=== PATIENT | female | born 1960 | race Caucasian/White ===

== ENCOUNTER 2019-04-16 14:14 | Emergency (ER) | payer BC, SELFPAY ==
[2019-04-16 14:18] VITALS: BP 110/80; PULSE 79; RESP 20; TEMP 36.8
--- NOTE | 2019-04-16 14:23 | DI.RAD_ITS ---
SYMPTOM/DIAGNOSIS: S/P STUBBED 5TH TOE , H/O PINS IN FOOT, ? ACUTE FX OR HARDWARE LOOSENING LEFT FOOT: Three views were obtained. There are fixation screws in the fifth metatarsal midshaft. There is a lucent halo associated with the proximal screw consistent with loosening. Very subtle linear lucencies present in the fifth metatarsal may be associated with the reported healing fracture of about 6 months age. No convincing acute fracture is seen but acute fracture not entirely excluded. IMPRESSION: Findings consistent with screw loosening of a fixation screw of the fifth metatarsal.
--- NOTE | 2019-04-16 14:25 | ED.GENADUL_ITS ---
Discharge Plan Disposition Patient Disposition: HOME Condition: Stable Discharge Details Chief Complaint: Orthopedic Clinical Impression: Sprain of toe, fifth, left Primary Care Provider: None,None ED Provider: Elisa Garcia Home Meds and New Rx's Prescriptions: Continued sumatriptan succinate [Imitrex] 25 MG tablet 25 mg PO PRN RF: 0 diphenhydramine HCl 25 MG capsule 25 mg PO PRN RF: 0 omeprazole [Prilosec] 20 MG capsule,delayed release(DR/EC) 20 mg PO DAILY RF: 0 escitalopram oxalate [Lexapro] 10 MG tablet 10 mg PO HS RF: 0 Discharge Instructions Instructions: Foot Sprain (ED) Additional Instructions: Rest, ice, and elevate left foot as much as possible. Apply ice to the affected area several times daily for 20 minutes at a time. Alternate Tylenol and Motrin as needed directed for pain. Follow-up with your primary care doctor next week for reevaluation as needed. Return to the emergency department with any worsening or new concerning symptoms. Discharge Data Discharge Physician: Elisa Garcia Medical Decision Making 58-year-old female 1 year status post left fifth metatarsal open reduction internal fixation who presents with left fifth toe pain after stubbed on a hard object at home yesterday. Tenderness to palpation of left fifth toe and left lateral foot. No deformities noted. Neurovascular intact. We will give a dose of ibuprofen and sent for left foot x-ray. 1545 --x-ray negative, hardware well aligned and no acute fracture. Patient instructed on the importance of rest, ice, elevate, Tylenol and Motrin. She is instructed to follow-up with the primary care doctor for reevaluation as needed and to return here with any concerns. Medical Records Medical records reviewed: Yes I reviewed the patient's medical records. Imaging Data Radiologic Study: Radiologist's impression: XR Left Foot Complete EXAM DATE/TIME: 04/16/2019 2:25 PM CLINICAL HISTORY: 58 years old, female; Signs and symptoms; Other: S/P stubbed L 5th toe, h/o pins in foot; Prior surgery; Surgery date: 6+ months; Additional info: R/O acute fracture/ hardware loosening TECHNIQUE: Imaging protocol: XR Left foot. Views: 3 or more views. COMPARISON: No relevant prior studies available. FINDINGS: Prior screw fixation of a fifth metatarsal fracture in anatomic alignment well-healed. No acute fracture. Minimal degenerative changes consistent with patient's age. No bony destructive process. No evidence of fixation screw loosening. IMPRESSION: No evidence of acute bony abnormality. HPI General Mode of arrival: ambulatory . Date/Time Provider Initiated Documentation: 04/16/19 14:23 . Limitations to Documentation: no limitations . Information obtained by: patient . HPI Narrative: Patient is a 58 old female who presents with left toe pain and left lateral foot pain after stubbed her toe on a hard object yesterday. Patient states she is concerned because she had foot hardware placed in her left foot due to a fracture 1 year ago. She denies any ankle pain or injury. She has not taken anything for pain today. Related Data Home Medications Medication Instructions Recorded Confirmed diphenhydramine HCl 25 mg PO PRN 07/16/14 04/16/19 escitalopram oxalate [Lexapro] 10 mg PO HS 07/16/14 04/16/19 omeprazole [Prilosec] 20 mg PO DAILY 07/16/14 04/16/19 sumatriptan succinate [Imitrex] 25 mg PO PRN 07/16/14 04/16/19 Allergies Allergy/AdvReac Type Severity Reaction Status Date / Time aspirin Allergy Intermediate Nausea Unverified 04/16/19 14:20 General Stated Complaint: Orthopedic ROGELIO: 3 Review of Systems Review of Systems All systems reviewed & are unremarkable except as noted in HPI and below PFSH Medical History Anxiety (Chronic) GERD (gastroesophageal reflux disease) (Chronic) Migraine (Chronic) Surgical History History of knee surgery (Acute) Social History Smoking/Tobacco Use Status: Never Alcohol Intake: current Alcohol Intake frequency: 0-2 drinks per day Drug use: Never Substance use type: does not use Do you feel safe at home: Yes Do you feel safe in your relationship?: Yes Exam Const General: cooperative, healthy appearing and no acute distress HENMT Head: normal to inspection Mouth: oral mucosae normal Eyes General: appearance normal, both eyes and all related structures Neck Neck: normal visual inspection Resp Effort & Inspection: normal respiratory effort and able to speak in complete sentences Cardio Rate: regular rate Skin General skin exam: no rashes or lesions noted Neuro General: alert, awake and oriented x3 Motor: muscle tone normal throughout Extrem Other: Tenderness to palpation, mild edema and ecchymosis noted to left fifth toe. No obvious deformity noted. Tenderness to palpation along left lateral foot. Well-healed incisional scar noted on left lateral foot. No signs of infection. Normal left ankle exam. Left DP/PT pulses intact. Remainder of toes 1 through 4 with a normal limits. Psych Appearance: grossly normal Affect: normal affect Course Vital Signs Temperature 98.2 F 04/16/19 14:18 Pulse 79 04/16/19 14:18 Respiratory Rate 20 04/16/19 14:18 Blood Pressure 110/80 04/16/19 14:18 Temperature 98.2 F 04/16/19 14:18 Temperature Source Temporal Artery Scan 04/16/19 14:18 Pulse 79 04/16/19 14:18 Respiratory Rate 20 04/16/19 14:18 Respiratory Effort Non-Labored 04/16/19 14:18 Blood Pressure 110/80 04/16/19 14:18 Pain Level 5 04/16/19 14:18
--- NOTE | 2019-04-16 15:45 | DI.VRAD_ITS ---
EXAM: XR Left Foot Complete EXAM DATE/TIME: 04/16/2019 2:25 PM CLINICAL HISTORY: 58 years old, female; Signs and symptoms; Other: S/P stubbed L 5th toe, h/o pins in foot; Prior surgery; Surgery date: 6+ months; Additional info: R/O acute fracture/ hardware loosening TECHNIQUE: Imaging protocol: XR Left foot. Views: 3 or more views. COMPARISON: No relevant prior studies available. FINDINGS: Prior screw fixation of a fifth metatarsal fracture in anatomic alignment well-healed. No acute fracture. Minimal degenerative changes consistent with patient's age. No bony destructive process. No evidence of fixation screw loosening. IMPRESSION: No evidence of acute bony abnormality. Dictated and Authenticated by: Angel Nowak MD. Ordering:JIGNA Pérez MD
[2019-04-16] MEDS: Ibuprofen 600 MG TAB PO (15:55)
--- NOTE | 2019-04-17 20:16 | W.ED.FU ---
In house radiologist Dr. Alex noted a discrepancy with foot xray read as negative per vrad on 04/16/19 with new report of findings consistent with screw loosening of a fixation screw of the fifth metatarsal. Spoke with patient over the phone regarding this discrepancy x-ray finding. Patient placed on orthopedic list for review of this x-ray in the morning to confirm whether this is an actual loosening. She was instructed to call her orthopedist in [place] where she had the hardware placed 1 year ago. At this time she is still encouraged to rest, ice, elevate and nonweightbearing until follow-up with her orthopedist for further recommendations.
--- NOTE | 2019-04-17 20:20 | ED.FU.B_ITS ---
In house radiologist Dr. Alex noted a discrepancy with foot xray read as negative per vrad on 04/16/19 with new report of findings consistent with screw loosening of a fixation screw of the fifth metatarsal. Spoke with patient over the phone regarding this discrepancy x-ray finding. Patient placed on orthopedic list for review of this x-ray in the morning to confirm whether this is an actual loosening. She was instructed to call her orthopedist in [place] where she had the hardware placed 1 year ago. At this time she is still encouraged to rest, ice, elevate and nonweightbearing until f ollow-up with her orthopedist for further recommendations.
== END 2019-04-16 16:00 | disposition home or self-care (01) ==
PROVIDERS: Emergency Provider Physician Assistant
DX: S93.522A Sprain of metatarsophalangeal joint of left great toe, initial encounter (principal); W22.8XXA Striking against or struck by other objects, initial encounter
CPT/HCPCS: 99283; 73630

== ENCOUNTER 2019-07-29 08:25 | Outpatient (CLI) | payer BC, SELFPAY ==
--- NOTE | 2019-07-29 08:18 | DI.RAD_ITS ---
SYMPTOM/DIAGNOSIS: LEFT KNEE PAIN LEFT KNEE: There is severe narrowing of the medial femoral tibial joint and prominent spurring. Periarticular sclerosis is also seen. There is some varus angulation at the knee. There is also spurring from the lateral femoral condyle, lateral tibial plateau and tibial spines. There is spurring at the inferior aspect of the patellofemoral joint. IMPRESSION: Degenerative changes, most severe at the medial femoral tibial joint.
== END 2019-07-29 08:45 ==
PROVIDERS: Visit Provider Physician Assistant
DX: M25.562 Pain in left knee (principal); M17.12 Unilateral primary osteoarthritis, left knee
CPT/HCPCS: 73562

== ENCOUNTER 2019-09-02 10:58 | Outpatient (CLI) | payer BC, SELFPAY ==
--- NOTE | 2019-09-02 10:46 | DI.RAD_ITS ---
EXAM: XR STANDING ALIGNMENT INDICATION: OA left knee. COMPARISON: No exams were available for comparison TECHNIQUE: 2D digital imaging was performed. FINDINGS: Hip joint spaces are well maintained. The left femoral head projects superior to the right. There are degenerative changes of both knees, left greater than right. The ankle joint spaces are well jeet ntained. IMPRESSION: Degenerative changes greatest of the left knee. Leg length discrepancy.
== END 2019-09-02 11:18 ==
PROVIDERS: Visit Provider Physician Assistant
DX: M17.12 Unilateral primary osteoarthritis, left knee (principal); M21.70 Unequal limb length (acquired), unspecified site
CPT/HCPCS: 77073

== ENCOUNTER 2019-11-03 09:52 | Outpatient (CLI) | payer BC, SELFPAY ==
[2019-11-03 11:24] LABS: HCT 46.3 % (36.0-46.0); HGB 14.6 g/dL (12.0-15.5); Mean Corp. HGB Concentration 31.5 g/dL (32.0-36.0); Mean Corpuscular Volume 95.1 fL (80-95); Mean Platelet Volume 11.3 fL (8.0-11.0); Platelet Count 267 x1000/uL (130-400); RBC 4.87 m/cumm (4.00-5.20); RBC Distribution Width 12.4 % (11.7-14.6); White Blood Cell Count 6.99 k/cumm (4.4-10.8)
[2019-11-03 12:09] LABS: Anion Gap 5.3 mmol/L (3-11); BUN 17 mg/dL (7-18); CO2 30.7 mmol/L (21.0-32.0); CREATININE 0.86 mg/dL (0.55-1.02); Calcium 9.7 mg/dL (8.5-10.1); Chloride 105 mmol/L (98-107); Glucose 105 mg/dL (74-106); Potassium 4.6 mmol/L (3.5-5.1); Sodium 141 mmol/L (136-145)
--- NOTE | 2019-11-03 16:00 | W.PREOPHP ---
Date of service: 11/03/19 Assessment and Plan Assessment and plan (1) Primary osteoarthritis of left knee: Status: Chronic Assessment and plan: Pulmonary function. Details of surgery were discussed with patient as well as risks and pertinent anatomy. All questions were answered. History of Present Illness History of Present Illness Chief Complaint: Left knee pain Narrative: Landy is a 59-year-old female who comes in today for preop history and physical for a left total replacement. She has been dealing with left knee pain for quite some time, and to get aggravated from an event in which she had surgery for her foot and was forced to wear a fracture walking boot. Since then her knee pain had significantly increased. It bothers her when she is ambulating for long time, and also she sits with her knees bent for any length of time she gets an increase in her pain. She has difficulty ambulating stairs as well. This is starting to interfere with normal daily routine. She has had an injection, but will work for 1-2 days, and then the pain returned. She has had x-rays which does reveal some pretty severe arthritis of the left knee, mostly in the medial compartment where she has joint space narrowing. She also has bone spurs throughout the knee. Since she has failed conservative treatment including injections, Dr. Heredia does offer a left total knee replacement, and she is anxious to proceed. Pertinent Surgical Information Landy has a history of sleep apnea for which he does use a CPAP machine. Patient denies history of hypertension, CVA, [place], angina, asthma, COPD, renal or liver disorders, hepatitis, bleeding disorders, diabetes, immune or thyroid disorders. No complications from anesthesia. Review of Systems Constitutional Constitutional: Denies fever(s) ENT Ears, Nose, Mouth, and Throat: Denies dizziness and Denies sore throat Cardiovascular Cardiovascular: Denies chest pain, Denies palpitations and Denies dyspnea Respiratory Respiratory: Denies cough and Denies dyspnea Gastrointestinal Gastrointestinal: Denies abdominal pain, Denies melena, Denies hematochezia, Denies diarrhea, Denies nausea and Denies vomiting Genitourinary Genitourinary: Denies hematuria and Denies dysuria Neurologic Neurologic: Denies dizziness Endocrine Endocrine: Denies palpitations [facility] Medical History (Updated 11/03/19 @ 16:03 by RAVINDRA Mancia) Anxiety (Chronic) GERD (gastroesophageal reflux disease) (Chronic) Migraine (Chronic) Restless leg syndrome (Acute) Sleep apnea (Acute) uses CPAP Surgical History (Updated 11/03/19 @ 11:13 by Bertha Tello RN) Combative reaction (Acute) History of waking up from anesthesia with the potential to be combative, pt states I've woken up swinging before. History of foot surgery (Acute) left surgery with pins History of knee surgery (Acute) Done at [facility] History of surgery on arm (Acute) Left arm surgery History of tonsillectomy and adenoidectomy (Acute) Hx of appendectomy (Chronic) Hx of cholecystectomy (Chronic) Social History Smoking/Tobacco Use Status: Former Tobacco Use Alcohol Intake: current Alcohol Intake frequency: 0-2 drinks per day Drug use: Never Substance use type: does not use Do you feel safe at home: Yes Do you feel safe in your relationship?: Yes Meds Home Medications and Allergies Home Medications Medication Instructions Recorded Confirmed Type escitalopram oxalate [Lexapro] 10 mg PO HS 07/16/14 11/03/19 History omeprazole [Prilosec] 20 mg PO HS 07/16/14 11/03/19 History ascorbate calcium (vitamin C) 500 600 mg PO .COMPLEX tab 07/29/19 11/03/19 History mg tablet cholecalciferol (vitamin D3) 1,000 1,000 unit PO .COMPLEX 07/29/19 11/03/19 History unit capsule glucosamine-chondroitin 500 mg-400 2 cap PO HS cap 07/29/19 11/03/19 History mg capsule potassium 99 mg tablet 99 mg PO DAILY tab 07/29/19 11/03/19 History ropinirole 0.25 mg tablet 0.25 mg PO QHS 07/29/19 11/03/19 History Allergies Allergy/AdvReac Type Severity Reaction Status Date / Time aspirin Allergy Intermediate Nausea Unverified 11/03/19 10:08 Exam [facility] Head: normocephalic and atraumatic General nose exam: no nasal discharge Throat: uvula midline and no uvular edema Other: soft palate rises symmetrically, no erythema Eyes Conjunctivae: conjunctivae normal Sclera: sclerae normal Pupils: PERRL Resp Effort & Inspection: normal respiratory effort Auscultation: clear to auscultation bilaterally and no wheezes Cardio Rate: regular rate Rhythm: regular rhythm Heart Sounds: S1 normal, S2 normal and no murmurs GI Palpation: soft, no hepatosplenomegaly and nontender Auscultation: normal bowel sounds Results Labs Result diagrams: 11/03/19 11:11 11/03/19 11:11 Labs: Laboratory Results - last 24 hr 11/03/19 11/03/19 11:11 11:11 WBC 6.99 RBC 4.87 Hgb 14.6 Hct 46.3 H MCV 95.1 H MCH 30.0 MCHC 31.5 L RDW 12.4 Plt Count 267 MPV 11.3 H Sodium 141 Potassium 4.6 Chloride 105 Carbon Dioxide 30.7 Anion Gap 5.3 BUN 17 Creatinine 0.86 Estimated GFR/1.73 m2 >= 60.00 Glucose 105 Calcium 9.7
== END 2019-11-03 10:12 ==
PROVIDERS: PCP Physician Assistant Medical; Visit Provider Student in an Organized Health Care Education/Training Program
DX: M25.562 Pain in left knee (principal); M17.12 Unilateral primary osteoarthritis, left knee; K21.9 Gastro-esophageal reflux disease without esophagitis; E66.9 Obesity, unspecified; Z01.818 Encounter for other preprocedural examination; Z01.812 Encounter for preprocedural laboratory examination
CPT/HCPCS: 36415; 80048; 85027; NC

== ENCOUNTER 2019-11-15 07:25 | Inpatient (IN) | payer BC, SELFPAY ==
[2019-11-03 09:52] VITALS: BP 129/85; PULSE 83; RESP 18; TEMP 36.9; O2SAT 96
[2019-11-15] VITALS (14 sets, daily range): BP systolic 106–141; BP diastolic 70–91; PULSE 55–71; RESP 10–19; TEMP 36.2–36.9; O2SAT 92–100
[2019-11-15] MEDS: Acetaminophen 500 MG TAB 1000 MG PO ×3 (06:30→19:39)
[2019-11-15] MEDS: Celecoxib 200 MG CAP 400 MG PO (06:30)
[2019-11-15] MEDS: Lactated Ringers 1,000 ML 80 ML IV ×3 (06:30→21:39)
[2019-11-15] MEDS: Gabapentin 300 MG CAP PO (06:30)
[2019-11-15] MEDS: Bupivacaine 0.5% Pres-Free 30 ML VIAL (07:22)
[2019-11-15] MEDS: ceFAZolin 2 GM/50 ML BAG IVPB (07:55)
[2019-11-15] MEDS: Normal Saline 20 ML VIAL (09:00)
[2019-11-15] MEDS: Bupivacaine 0.25% Pres-Free 30 ML VIAL (09:00)
[2019-11-15] MEDS: Bupivacaine LIPOSOME/PF 133 MG/10 ML VIAL IJ (09:00)
[2019-11-15] MEDS: Ketorolac 30 MG/ML VIAL (09:00)
--- NOTE | 2019-11-15 10:21 | W.PM.OP ---
Date of service: 11/15/19 Time of Service: 09:41 Operative Note Operative Note DATE OF PROCEDURE: 11/15/19 PRE-OP DIAGNOSIS: Left Knee Osteoarthritis POST-OP DIAGNOSIS: same PROCEDURE: Left Total Knee Replacement SURGEON: Sorin Heredia HEAD SCHOOL CUSTODIAN: Jose Agrawal ANESTHESIA: regional and spinal ESTIMATED BLOOD LOSS: 200 PATHOLOGY: none sent TOURNIQUET TIME: 35 COMPLICATIONS: None Patient was transported to: PACU Patient's condition: stable Implants: 1. Depuy Attune Posterior Stabilized Femoral Component, Size 6 2. Depuy Attune Fixed Platform Tibial Component, Size 5 3. Depuy Attune 6x8mm Fixed, Stabilized Poly 4. Depuy Attune Patellar Component, Size 35mm Indications: I have seen Landy in clinic for symptoms of left knee arthritis, confirmed with radiographic findings. Landy has exhausted nonoperative methods and was having significant limitations in daily function and desired better function and less pain. I discussed the technical details of a knee replacement. I explained the risks of the procedure to include, but not limited to, bleeding, infection, pain, stiffness, fracture, damage to nerves and vessels, damage to muscles and tendons, loosening, need for repeat procedure, blood clot and cardiopulmonary demise. Despite these risks, Landy elected to proceed. Findings: There was significant signs of arthritis throughout the knee. These were most notable along the medial tibia and femur. Procedure Description: Landy was greeted in the preoperative holding area where the correct side was identified and marked. The consent was reviewed with the patient and signed. The history and physical was updated. All questions were answered. Preoperative mediacations were administered: Acetaminophen 1000mg, Celebrex 400mg, and Gabapentin 300mg. An adductor canal block was then administered by the anesthesia team in the PACU. Landy was taken back to the operating room. A spinal anesthestic was then administered. The patient was placed into the supine position on the operating room table. A nonsterile tourniquet was placed high onto the leg but only used for cementing. Posts were placed for positioning during the procedure. All bony prominences were well padded. Prophylactic antibiotics in the form of Cefazolin were administered. 1g of Tranxemic Acid was given intravenously within 30 minutes of incision. The left leg was then prepped with Chloraprep and draped in a standard fashion with impervious stockinette and extremity drape. A second prep with Chloraprep was performed prior to placing Ioband. A timeout to confirm correct identity, side and site, procedure, allergies, anesthesia, and medical concerns was performed. With the knee in some flexion, a midline incision was made overlying the knee. Full thickness skin flaps were raised once the extensor mechanism was encountered. These were raised medially and laterally. Any bleeding was controlled with electrocautery. Once the extensor mechanism was fully exposed, a medial parapatellar arthrotomy was performed in a flexed position. All bleeding from the arthrotomy and the geniculate arteries was coagulated. A medial subperiosteal peel was performed with electrocautery to the midcoronal plane. The deep MCL and capsular attachments were released around the medial tibia. The fat pad was removed while keeping the patellar tendon protected. The anterior distal femur synovium was removed for later visualization. The ACL and PCL were resected and the anterior horn of the lateral meniscus was transected. The knee was then flexed with the patella everted. Large osteophytes from the tibia were removed. Large osteophytes from the femur were removed. Using a step drill, and based on preoperative templating, the femoral canal was entered. This was done with a step drill without any difficulty. The intramedullary distal femoral cut guide was inserted, set to a 5 degree valgus cut and 9mm cut thickness. The distal femoral cut guide was then held in position and pinned. With the soft tissues protected, the distal cut was performed. This was passed over a few times to ensure a planar cut. I then turned attention to the tibia. The extramedullary guide was placed onto the leg. The distal aspect was slid medial to adjust for position of center of ankle and stay in line with shaft of the tibia. Approximately 3-5 degrees of posterior slope was kept in the proximal cutting guide. The center of the guide was aligned with the PCL. The stylus was used to assess cut thickness. The medial side, most involved side, was set for a 3mm cut, corresponding to a 9mm lateral cut. This was then held in position and pinned into place with 2 additional pins and a cross pin for stability. The medial and lateral collateral ligaments were protected and the cut was performed. With this completed, it was assessed and noted to be of appropriate dimensions. The guide was removed. A spacer block was inserted and the knee was brought into extension. The 7mm spacer block provided full extension, without hyperextension and with stability of both the medial and lateral collateral ligaments was assessed. The pins from the femur and the tibia were then removed. The distal femur was then sized. The anterior stylus was placed onto the lateral ridge of the anterior femur. This indicated a size 6 femur. The external rotation of the guide was adjusted to 3 degrees to match the epicondylar axis, perpendicular to Winona?s line. The 4-in-1 cutting guide was the placed. The posterior medial femur cut was evaluated and appeared of good thickness. The spacer block was inserted underneath the cutting guide and stability was confirmed in 90 degrees of flexion. An collins wing was used to confirm appropriate position of the anterior cut to avoid notching. This cutting guide was ensured to be flush on the cut surface and then pinned into place with headed pins. While protecting the soft tissues, quad tendon, and collateral ligaments, the anterior and posterior cuts were performed with a saw. The central two pins were removed and the posterior and anterior chamfers were cut next. The notch-cutting guide was placed. This was pinned to lateralize the femoral component as much as possible while keeping it flush on the cut surface. This was then pinned into position. A reciprocating saw was used to make the notch cut. A rasp smoothed the cut surfaces. A trial posterior stabilized femoral component was then inserted, impacted down to the cut surfaces, and the lug holes were drilled. A provisional trial tibial component was placed and the knee was brought through range of motion. There was noted to be excellent extension and flexion. The polyethylene was trialed until there was good flexion and extension with excellent stability to the medial and lateral collaterals. The patella was tracking without thumbs. The tibial cut surface was fully exposed. The medial and lateral menisci were removed. The tibia was then sized as a 5. The tibia had been previously marked during trialing to correspond to the center of the tibial component to help with rotation. The trial was aligned to this jose, approximately rotated to the medial 1/3rd of the tibial tubercle. The trial was pinned into place. The tibia was prepared with a reamer and a keel punch. The knee was then brought into extension and the patella was measured as 23mm. Using the patellar clamp and cut guide, this was resected to a flat surface with at least 13mm of thickness remaining. The size 35 patella fit the best. This was oriented and then clamped into position. The lugs were drilled. The trial components were removed. The final components, except for the polyethylene were opened on the back table. The periosteal and capsular tissues, especially posteriorly, around the knee were then systematically injected with a periarticular cocktail consisting of 50cc 0.25% Marcaine, 30mg Ketorolac, 20cc of Exparal and 50cc of injectable saline. The tourniquet was then inflated to 275mmHg. The knee was thoroughly irrigated with a pulse lavage and dried. On the back table, with the implants opened, the cement was mixed. 2 batches of cement were prepared with vacuum assistance. After the cement was ready it was placed on to the back side of the tibial component. A small amount was placed onto the posterior flange of the femur. Cement was manual pressurized and impregnated into the cut surface of the tibia. The tibial component was then inserted into the cut surface and impacted into position. Excess cement was removed and the component was reimpacted. Again, excess cement was removed and our attention was then turned to the femur. The femoral cut surface was once again dried and cement was manually impacted into the cut surface. The femoral component was lined with the lug holes and impacted. Excess cement was removed. It was ensured to be down against the cut surface. The trial polyethylene was then inserted and the leg was brought out into full extension for the duration of the cement curing process, approximately 15min. Cement was lastly manually impacted into the cut surface of the patella and the patellar button was clamped into position and held. During this process attention was turned to the gutters of the knee and for all interfaces for any excess cement. While the cement was hardening, the knee was irrigated with Irrisept chlorhexadine solution. It was allowed to sit in the knee for 3 minutes. After the cement had finally cured, approximately 15min, the clamp was removed from the patella and the knee was taken through range of motion. A size 8mm polyethylene component provided the best range of motion and stability with less than 2mm gapping with medial and lateral stress and full extension without significant hyperextension. The patella was tracking with a no-thumbs technique. The trial poly was removed and once again the knee was checked for any loose, excess, or errant cement. The poly component was then inserted and impacted into position after cleaning and drying the tibial tray. The capsule was then reapproximated with a No. 1 Vicryl at multiple locations. The capsule was finally closed with a No. 2 Stratafix, barbed suture. The tourniquet was then released and the arthrotomy appeared watertight without significant bleeding. The second dosing of 1g TXA was started. Deep tissues were then reapproximated with 0 Vicryl and 2-0 Vicryl. The skin was closed with a running 3-0 Monocryl in a subcuticular fashion. This was reinforced with skin glue. A Mepilex silver dressing was applied along with a [id number] JORGE wrap. A CryoCuff was applied. Landy was transferred to the hospital bed without difficulty an suffering no apparent complication. Landy has a good prognosis. Physical therapy will start today and without restrictions, weight-bearing as tolerated. Aspirin 81mg BID will be used for DVT prophylaxis.
--- NOTE | 2019-11-15 12:41 | NUR.NOTE ---
Nursing Note: Pt arrived from PACU, VSS. A&Ox3. denies pain, nausea. CMST's WNL. palpable pedal pulse bilateral. Rivera patent. oriented to room, resting comfortably.
--- NOTE | 2019-11-15 13:05 | IN_ITS ---
Date of service: 11/15/19 Time of Service: 11:54 PT Notes Visit Reasons: LEFT KNEE DJD Physical Therapy Inpatient Initial Evaluation Date: 11/15/2019 Referring Doctor: Sorin Heredia MD PT Orders: PT CONSULT: Status post Ortho surgery. Status post left TKA Precautions: Fall. Standard. WBAT on left LE. Patient Profile/Admitting Diagnosis: Patient is a 59-year-old female who is status post total knee arthroplasty on the left side on postoperative day 0 due to due to degenerative joint disease of the left knee. PMHX: Medical History (Updated 11/03/19 @ 16:03 by RAVINDRA Mancia) Anxiety (Chronic) GERD (gastroesophageal reflux disease) (Chronic) Migraine (Chronic) Restless leg syndrome (Acute) Sleep apnea (Acute) uses CPAP Surgical History (Updated 11/03/19 @ 11:13 by Bertha Tello RN) Combative reaction (Acute) History of waking up from anesthesia with the potential to be combative, pt states I've woken up swinging before. History of foot surgery (Acute) left surgery with pins History of knee surgery (Acute) Done at [facility] History of surgery on arm (Acute) Left arm surgery History of tonsillectomy and adenoidectomy (Acute) Hx of appendectomy (Chronic) Hx of cholecystectomy (Chronic) Social History/Home Situation: Patient lives with in a 2 floor house with 3-4 steps to enter with rails on both sides. There is another 10 steps to the second floor of the house again with rails on both sides. 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 Patient is independent with all aspects of ADLs prior to surgery but required the use of a front wheeled walker for all outdoor ambulation as it was getting harder to navigate outdoor terrain with her increasingly painful left knee. Equipment Owned/DME: Front wheeled walker Subjective: Patient is agreeable to a PT consult. She is amazed at how much she is able to do and less than today after major surgery. She is very much pleased with her ability to move about without pain. She denies headache, chest pain, and dizziness throughout PT consult and mobility assessment. Objective: General Observation: TEDS on right leg. Cryo/Cuff on left knee. Cristian wraps of left knee. Rivera catheter in place. IV in left UE. Mental Status: Alert and oriented x4 Pain: 0/10 Vital Signs: Patient tested negative for orthostatic hypotension at time of evaluation. ROM: Right Upper Extremity: Shoulder Flexion WFL. Shoulder abduction WFL. Elbow flexion WFL. Wrist flexion WFL. Opening and closing of hand WFL. Left Upper Extremity: Shoulder Flexion WFL. Shoulder abduction WFL. Elbow flexion WFL. Wrist flexion WFL. Opening and closing of hand WFL. Right Lower Extremity: Hip flexion WFL. Hip abduction WFL. Knee flexion allows - 12 to 105 degrees. Knee extension is -12 degrees. Ankle dorsiflexion WFL. Ankle plantarflexion WFL. Left Lower Extremity: Hip flexion WFL. Hip abduction WFL. Knee flexion WFL. Ankle dorsiflexion WFL. Ankle plantarflexion WFL. Strength: Right Upper Extremity: Shoulder flexors 5/5. Shoulder abductors 5/5. Elbow flexors 5/5. Elbow extensors 5/5. 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 Left Upper Extremity: Shoulder flexors 5/5. Shoulder abductors 5/5. Elbow flexors 5/5. Elbow extensors 5/5. 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 Right Lower Extremity: Hip flexors 5/5. Hip abductors 5/5. Knee flexors 3-/5. Knee extensors 3-/5. Ankle dorsiflexors 5/5. Ankle plantarflexors 5/5. Left Lower Extremity:Hip flexors 5/5. Hip abductors 5/5. Knee flexors 5/5. Knee extensors 5/5. Ankle dorsiflexors 5/5. Ankle plantarflexors 5/5. Sensation: Intact as to pain and pressure on bilateral lower extremities. Bed Mobility/Transfers: Rolling supervision Supine to sit supervision Sit to supine supervision Sit to stand SBA Stand to sit SBA Bed to chair SBA SBA Chair to bed Gait: Patient tolerated short distance ambulation of 10 feet forward and 10 feet backward using front wheeled walker with weightbearing as tolerated on the left LE requiring only CGA and wheelchair follow without complaints of any dizziness using a step through gait pattern. Anne Marie decreased. No antalgic gait seen. Left LE in good alignment. Balance: Static Sitting: Normal Dynamic Sitting: Normal Static Standing: Fair Dynamic Standing: Fair Special Tests: Mobility Limitations Standardized Measure [facility] AM-PAC 6 clicks Basic Mobility Inpatient Short Form: Raw Score: 22 CMS Score: 21% deficit Informed Consent/Education: Patient instructed in purpose of PT consult and plan of care. Assessment: Patient is a 59-year-old female who is status post total knee arthroplasty on the left side on postoperative day 0 due to due to degenerative joint disease of the left knee. Patient presents with clinical signs and symptoms consistent with current/admitting diagnoses that have resulted to mobility limitations, gait instability, generalized weakness, and impairment of motor control as demonstrated by the following impairment level findings: 1. Decreased strength to right knee major muscle groups 2. Impaired sitting/standing balance 3. Impaired activity tolerance 4. Limitation of joint range of motion in right knee Impairments are contributing to the following functional limitations: 1. Dependent bed mobility skills 2. Increased dependence with transfers 3. Inability to safely ambulate without assistive device and physical assistance 4. Increase completion time for mobility ADL performance 5. Increased fall risk 6. Inability to negotiate steps alone safely Patient is assessed as a 84657 moderate complexity based on the following: History: 59-year-old female with impairment level findings, functional limitations, and [facility] CMS deficit score of 21% Examination: Demonstrable impairment in strength, balance, and range of motion with underlying impairments and functional limitations as documented above Presentation: Evolving Decision Makin moderate complexity Goals: Goals X1 week 1. Supine-Sit independent 2. Sit-Supine independent 3. Sit-Stand independent 4. Stand-Sit independent 5. Bed-Chair independent 6. Chair-Bed independent 7. Independent gait on level surface with use of least restrictive device for at least 300 feet without report of pain nor dyspnea 8. Independent stair negotiation while holding onto bilateral rails for at least 10 steps without report of pain nor dyspnea 9. Independent with home exercise program 10. Good static and dynamic standing balance/tolerance Plan of Care/Treatment Plan: 1-2x/day, 7 days/week x 1 week. Plan of care has been reviewed with the STUDIO COUCH FRAME BUILDER providing the service under Physical Therapy direction. Initiate Physical Therapy intervention for strengthening, bed mobility, transfers, gait, stairs, balance training, use of assistive device. DISCHARGE RECOMMENDATIONS: May benefit from skilled physical therapy services according to orthopedic surgeon's timeline recommendations. Patient will be educated and trained on home exercise program per TKA exercise protocol in preparation for outpatient physical therapy services. TREATMENT CODE/TIME: 48234 x 35 minutes beginning at 11:54 AM. Thank you very much for this referral. Paty Kellogg PT, DPT, CLT [facility] [place], [place]
--- NOTE | 2019-11-15 14:52 | PT.INTREAT ---
Date of service: 11/15/19 Time of Service: 14:52 PT Notes Visit Reasons: LEFT KNEE DJD Inpatient Physical Therapy Treatment Note [facility] Date: 11/15/19 PRECAUTIONS: Fall, WBAT L SUBJECTIVE: Landy is agreeable to participating in PT. She reports that her knee is feeling pretty good, and it feels good to get up and walk around. OBJECTIVE: PAIN: Patient c/o aching in left knee with gait training BED MOBILITY/TRANSFERS Sit?supine: I with HOB flat Sit-stand: S Stand-sit: S GAIT Assistive Device: FWW Weight bearing: WBAT L Assist: SBA Distance: 100' Deviation: Step to gait pattern utilized THEREX: Patient completed a LE strengthening program in a long sitting position, as per flow sheet. She ends with Cryo/Cuff to L knee ASSESSMENT: Patient tolerated session well, tolerating a progression in gait distance with FWW support and SBA. She would benefit from continued gait and transfer training, as well as strengthening for improved mobility. PLAN: Continue with PT's POC TREATMENT CODE/TIME: 30 minutes; 77822, [id number]
[2019-11-15] MEDS: ceFAZolin 1 GM/50 ML BAG IVPB ×2 (15:07→21:39)
[2019-11-15] MEDS: oxyCODONE 5 MG TAB PO (15:07)
[2019-11-15] MEDS: Celecoxib 200 MG CAP PO (19:39)
[2019-11-15] MEDS: Aspirin E.C. 81 MG TABEC PO (19:39)
[2019-11-15] MEDS: rOPINIRole 0.5 MG TAB 0.25 MG PO (21:36)
[2019-11-15] MEDS: Escitalopram 10 MG TAB PO (21:36)
[2019-11-15] MEDS: Omeprazole 20 MG CAPCR PO (21:44)
[2019-11-16 00:34] VITALS: BP 127/78; PULSE 76; RESP 21; TEMP 36.5; O2SAT 96
[2019-11-16 04:15] VITALS: BP 134/82; PULSE 70; RESP 16; TEMP 36.8; O2SAT 96
[2019-11-16] MEDS: oxyCODONE 5 MG TAB PO (04:22)
[2019-11-16] MEDS: Docusate Sodium 100 MG CAP PO (04:25)
[2019-11-16] MEDS: ceFAZolin 1 GM/50 ML BAG IVPB (07:15)
--- NOTE | 2019-11-16 08:03 | DSE_ITS ---
Date of service: 11/16/19 Time of Service: 08:03 DS: Diagnosis Discharge Diagnosis (1) Primary osteoarthritis of left knee: Status: Chronic Discharge Plan Disposition Patient Disposition: HOME Condition: Good Discharge Details Reason For Visit: LEFT KNEE DJD Admit Date/Time: 11/15/19 07:25 Admit Provider: Sorin Heredia Attending Provider: Sorin Heredia Primary Care Provider: Adrienne Hu Hospital Course Hospital Course: Patient was admitted to the medical/surgical floor following the procedure. It was tolerated well without any notable medical, surgical, or anesthetic complications. Mobilization began postoperatively. The diaz catheter was removed and voiding spontaneously. Vitals were stable. Physical therapy worked with the patient and was cleared for discharge home. No acute medical issues. Home Meds and New Rx's Prescriptions: New celecoxib 200 mg capsule 200 mg PO BID PRN (Reason: pain) Qty: 60 RF: 1 aspirin 81 mg tablet,delayed release (DR/EC) 81 mg PO BID Qty: 60 RF: 0 acetaminophen 500 mg tablet 1,000 mg PO Q8H PRN (Reason: pain) Qty: 90 RF: 3 gabapentin 300 mg capsule 300 mg PO QHS Qty: 7 RF: 0 oxycodone 5 mg tablet 5 mg PO Q4H Qty: 18 RF: 0 Continued ropinirole 0.25 mg tablet 0.25 mg PO QHS RF: 0 ascorbate calcium (vitamin C) 500 mg tablet 600 mg PO .COMPLEX RF: 0 cholecalciferol (vitamin D3) 1,000 unit capsule 1,000 unit PO .COMPLEX RF: 0 glucosamine-chondroitin 500-400 mg capsule 2 cap PO HS RF: 0 potassium 99 mg tablet 99 mg PO DAILY RF: 0 omeprazole [Prilosec] 20 MG capsule,delayed release(DR/EC) 20 mg PO HS RF: 0 escitalopram oxalate [Lexapro] 10 MG tablet 10 mg PO HS RF: 0 Discharge Instructions Additional Instructions: Dr. Heredia?s Total Knee Discharge Instructions Activity: The most important activity is to walk. You should try to take short walks a few times a day. It is important that when resting you work on keeping the knee straight. Avoid putting a pillow behind the knee as this will encourage flexion. Work on range of motion exercises as provided by Physical Therapy. - Start outpatient physical therapy within 2 weeks. - You should wear the YURI hose on both legs for 2 weeks. Dressing: Keep the surgical dressing in place for at least one week. After the first week it may be removed and replace with light gauze and tape or nothing. It may get wet after 3 days but avoid soaking the dressing. If it gets wet, just lightly pat dry. Medications: - You should take Tylenol and anti-inflammatory Celebrex as your primary pain control medications. If the Celebrex is too expensive or not covered, you may use Ibuprofen 600mg every 8 hours. - You have been prescribed a stronger pain medication Oxycodone for breakthrough pain, take as needed as prescribed. - You should continue your stomach acid reduction agent Omeprazole to help reduce stomach acid and reflux. - You will be taking Aspirin 81mg twice a day for DVT prevention unless instructed otherwise. - If you have constipation you should take Colace or Miralax (both [id number]). It takes most people 3-4 days to have a bowel movement. Follow-up: 2 weeks Referrals: Sorin Heredia MD [ [facility] STAFF PHYSICIAN] - Activity:: Activity as Tolerated Equipment/Supplies:: Walker Diet:: As Tolerated Discharge Orders Discharge Orders: Discharge Order (Routine); Ordered 11/16/19 Ordered By: Sorin Heredia DS: Summary Status at Discharge Functional status at discharge: uses cane/walker Overall status at discharge: patient is progressing back to baseline Mental Status: mental status grossly normal Speech and Movement: speech and movement normal Mood: congruent mood Affect: normal affect Exam Psych Mental Status: mental status grossly normal Speech and Movement: speech and movement normal Mood: congruent mood Affect: normal affect DS: Data Vitals/I&O Vitals and I&O: Vital Signs Temperature 36.8 C 11/16/19 04:15 Temperature Source Tympanic 11/16/19 04:15 Pulse 70 11/16/19 04:15 Pulse Rhythm Regular 11/16/19 04:15 Respiratory Rate 16 11/16/19 04:15 Respiratory Effort Non-Labored 11/16/19 04:15 Respiratory Depth Normal 11/16/19 04:15 Respiratory Pattern Normal 11/16/19 04:15 Blood Pressure 134/82 11/16/19 04:15 Pulse Oximetry 96 11/16/19 04:15 Respiratory End-tidal CO2 41 12/31/19 10:40 Oxygen Delivery Method Room Air 11/16/19 04:15 Oxygen Flow Rate 0 11/16/19 04:15 Pain Level 2 11/16/19 04:22 Intake & Output 11/15/19 11/15/19 11/16/19 11:59 23:59 11:59 Intake Total 979.333 / 2665.333 1686.000 / 2665.333 Output Total 325 / 1425 1100 / 1425 200 / 200 Balance 654.333 / 1240.333 586.000 / 1240.333 -200 / -200 Weight 115.4 kg Intake: IV 979.333 / 1935.333 956.000 / 1935.333 Oral 730 / 730 Output: Urine 125 / 1225 1100 / 1225 200 / 200 Estimated Blood Loss 200 / 200 Other: Urine Color Yellow Yellow Yellow Urine Appearance Clear Clear Clear Urine Odor None Comment pt void x 1 missing collection hat Emesis Description None Voiding Methods Toilet [facility] Medical History Anxiety (Chronic) GERD (gastroesophageal reflux disease) (Chronic) Migraine (Chronic) Restless leg syndrome (Acute) Sleep apnea (Acute) uses CPAP Surgical History Combative reaction (Acute) History of waking up from anesthesia with the potential to be combative, pt states I've woken up swinging before. History of foot surgery (Acute) left surgery with pins History of knee surgery (Acute) Done at [facility] History of surgery on arm (Acute) Left arm surgery History of tonsillectomy and adenoidectomy (Acute) History of tubal ligation (Chronic) Hx of appendectomy (Chronic) Hx of cholecystectomy (Chronic) Social History Smoking/Tobacco Use Status: Former Tobacco Use Alcohol Intake: current Alcohol Intake frequency: 0-2 drinks per day Drug use: Never Substance use type: does not use Do you feel safe at home: Yes Do you feel safe in your relationship?: Yes
[2019-11-16] MEDS: Acetaminophen 500 MG TAB 1000 MG PO (08:09)
[2019-11-16] MEDS: Aspirin E.C. 81 MG TABEC PO (08:09)
[2019-11-16] MEDS: Celecoxib 200 MG CAP PO (08:10)
[2019-11-16 08:38] VITALS: BP 120/80; PULSE 67; RESP 18; TEMP 36.3; O2SAT 96
--- NOTE | 2019-11-16 11:49 | PT.INTREAT ---
Date of service: 11/16/19 Time of Service: 11:50 PT Notes Visit Reasons: LEFT KNEE DJD Inpatient Physical Therapy Treatment Note [facility] Date: 11/16/2019 PRECAUTIONS: Fall, WBAT L SUBJECTIVE: Landy reports that she is feeling pretty good this morning, she is ready to return to home today. She states that she has taken several walks since yesterday afternoon. OBJECTIVE: PAIN: Patient c/o aching in left knee with gait training and there ex BED MOBILITY/TRANSFERS Sit-stand: I Stand-sit: I GAIT Assistive Device: FWW Weight bearing: WBAT L Assist: S Distance: 125' x2 Deviation: Step through gait pattern utilized, seated rest x1 THEREX: Patient completed a LE strengthening program in a long sitting position, as per flow sheet. She ends with Cryo/Cuff to L knee STAIRS: Up/down 9?4 and 6?6 using B rails and a step to pattern, independently. ASSESSMENT: Patient tolerated session well, tolerating a progression in gait distance with FWW support and supervision. She was able to tolerate the addition of stair training demonstrating safety and independence. PLAN: As per primary PT TREATMENT CODE/TIME: 30 minutes; 44569, [id number]
--- NOTE | 2019-11-17 13:13 | PT.INDS ---
Date of service: 11/17/19 Time of Service: 13:13 PT Notes Visit Reasons: LEFT KNEE DJD Inpatient Physical Therapy Discharge Summary Dates: 11/17/2018 Dates of Service: 11/15/2019 and 11/16/2018 This is a clinical summary of care provided on the duration of dates listed above. No charge was made in the completion of this documentation. Referring Doctor: Sorin Heredia MD PT Orders: PT CONSULT: Status post Ortho surgery. Status post left TKA Precautions: Fall. Standard. WBAT on left LE. Patient Profile/Admitting Diagnosis: Patient is a 59-year-old female who is status post total knee arthroplasty on the left side on postoperative day 1 upon discharge due to due to degenerative joint disease of the left knee. PMHX: Medical History (Updated 11/03/19 @ 16:03 by RAVINDRA Mancia) Anxiety (Chronic) GERD (gastroesophageal reflux disease) (Chronic) Migraine (Chronic) Restless leg syndrome (Acute) Sleep apnea (Acute) uses CPAP Surgical History (Updated 11/03/19 @ 11:13 by Bertha Tello RN) Combative reaction (Acute) History of waking up from anesthesia with the potential to be combative, pt states I've woken up swinging before. History of foot surgery (Acute) left surgery with pins History of knee surgery (Acute) Done at [facility] History of surgery on arm (Acute) Left arm surgery History of tonsillectomy and adenoidectomy (Acute) Hx of appendectomy (Chronic) Hx of cholecystectomy (Chronic) Social History/Home Situation: Patient lives with in a 2 floor house with 3-4 steps to enter with rails on both sides. There is another 10 steps to the second floor of the house again with rails on both sides. 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 Patient is independent with all aspects of ADLs prior to surgery but required the use of a front wheeled walker for all outdoor ambulation as it was getting harder to navigate outdoor terrain with her increasingly painful left knee. Equipment Owned/DME: Front wheeled walker Subjective: NT Objective: General Observation: NT Mental Status: NT Pain: NT Vital Signs: NT ROM: Right Upper Extremity: Shoulder Flexion WFL. Shoulder abduction WFL. Elbow flexion WFL. Wrist flexion WFL. Opening and closing of hand WFL. Left Upper Extremity: Shoulder Flexion WFL. Shoulder abduction WFL. Elbow flexion WFL. Wrist flexion WFL. Opening and closing of hand WFL. Right Lower Extremity: Hip flexion WFL. Hip abduction WFL. Knee flexion allows -12 to 105 degrees. Knee extension is -12 degrees. Ankle dorsiflexion WFL. Ankle plantarflexion WFL. Left Lower Extremity: Hip flexion WFL. Hip abduction WFL. Knee flexion WFL. Ankle dorsiflexion WFL. Ankle plantarflexion WFL. Strength: Right Upper Extremity: Shoulder flexors 5/5. Shoulder abductors 5/5. Elbow flexors 5/5. Elbow extensors 5/5. 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 Left Upper Extremity: Shoulder flexors 5/5. Shoulder abductors 5/5. Elbow flexors 5/5. Elbow extensors 5/5. 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 Right Lower Extremity: Hip flexors 5/5. Hip abductors 5/5. Knee flexors 3-/5. Knee extensors 3-/5. Ankle dorsiflexors 5/5. Ankle plantarflexors 5/5. Left Lower Extremity:Hip flexors 5/5. Hip abductors 5/5. Knee flexors 5/5. Knee extensors 5/5. Ankle dorsiflexors 5/5. Ankle plantarflexors 5/5. Sensation: Intact as to pain and pressure on bilateral lower extremities. Bed Mobility/Transfers: Rolling independent Supine to sit independent Sit to supine independent Sit to stand independent Stand to sit independent Bed to chair independent Chair to bed independent Gait: 125 feet x 2 with front wheeled walker requiring WBAT on left with supervision assist using step through gait pattern with 1 seated rest. Patient is also able to tolerate up-and-down nine 4 inch steps and six 6 inch steps using bilateral rails with step to gait pattern independently. Balance: Static Sitting: Normal Dynamic Sitting: Normal Static Standing: Fair Dynamic Standing: Fair Assessment: Patient is a 59-year-old female who is status post total knee arthroplasty on the left side on postoperative day 0 due to due to degenerative joint disease of the left knee. Patient continues to present with clinical signs and symptoms consistent with current/admitting diagnoses that have resulted to mobility limitations, gait instability, generalized weakness, and impairment of motor control as demonstrated by the following impairment level findings: 1. Decreased strength to right knee major muscle groups 2. Impaired sitting/standing balance 3. Impaired activity tolerance 4. Limitation of joint range of motion in right knee Impairments continue to contribute to the following functional limitations: 1. Inability to safely ambulate without assistive device and physical assistance 2. Increase completion time for mobility ADL performance 3. Increased fall risk 4. Inability to negotiate steps alone safely Goals: Goals X1 week 1. Supine-Sit independent MET 2. Sit-Supine independent MET 3. Sit-Stand independent MET 4. Stand-Sit independent MET 5. Bed-Chair independent MET 6. Chair-Bed independent MET 7. Independent gait on level surface with use of least restrictive device for at least 300 feet without report of pain nor dyspnea NOT MET 8. Independent stair negotiation while holding onto bilateral rails for at least 10 steps without report of pain nor dyspnea NOT MET 9. Independent with home exercise program NOT MET 10. Good static and dynamic standing balance/tolerance NOT MET DISCHARGE RECOMMENDATIONS: May benefit from skilled physical therapy services according to orthopedic surgeon's timeline recommendations. Patient will be educated and trained on home exercise program per TKA exercise protocol in preparation for outpatient physical therapy services. TREATMENT CODE/TIME: NT. Thank you very much for this referral. Paty Kellogg PT, DPT, CLT [facility] [place], [place]
== END 2019-11-16 11:18 | disposition home or self-care (01) | DRG 470 ==
LOC: MS 11:06
PROVIDERS: Admitting Provider Student in an Organized Health Care Education/Training Program; PCP Physician Assistant Medical; Visit Provider Student in an Organized Health Care Education/Training Program
PROC: 0SRD0J9 Replacement of Left Knee Joint with Synthetic Substitute, Cemented, Open Approach (ICD-10-PCS; CPT 27447; principal; 2019-11-15 08:15)
DX: M17.12 Unilateral primary osteoarthritis, left knee (principal); M25.562 Pain in left knee; Z96.652 Presence of left artificial knee joint; G25.81 Restless legs syndrome; K21.9 Gastro-esophageal reflux disease without esophagitis; G47.33 Obstructive sleep apnea (adult) (pediatric)
CPT/HCPCS: 27447; 76942; 97110; 97162; 97530; NC; J0690; J1100; J1885; J2250; J2405

== ENCOUNTER 2019-11-28 12:06 | Outpatient (CLI) | payer BC, SELFPAY ==
--- NOTE | 2019-11-28 12:02 | DI.RAD_ITS ---
EXAM: XR STANDING ALIGNMENT AND XR LEFT KNEE 1V INDICATION: 1ST POST OP. COMPARISON: XR STANDING ALIGNMENT from 09/02/2019 TECHNIQUE: 2D digital imaging was performed. FINDINGS: Patient is now status post left total knee replacement. Orthopedic hardware appears in good position . No evidence of hardware loosening is seen. In the right knee, there is moderate narrowing of the medial femorotibial joint space. There is periarticular spurring in both the medial and lateral femo rotibial joint spaces. The bones are normally mineralized and intact. Right lower extremity measure s 85.1 centimeters. The left lower extremity measures 86.2 centimeters. IMPRESSION: 1. Status post left TKR. 2. Osteoarthritis of the right knee.
== END 2019-11-28 12:26 ==
PROVIDERS: PCP Physician Assistant Medical; Visit Provider Student in an Organized Health Care Education/Training Program
DX: Z96.652 Presence of left artificial knee joint (principal); Z47.1 Aftercare following joint replacement surgery; M17.11 Unilateral primary osteoarthritis, right knee
CPT/HCPCS: 73560; 77073

== ENCOUNTER 2019-11-30 11:36 | Emergency (ER) | payer BC, SELFPAY ==
[2019-11-30 11:43] VITALS: BP 122/64; PULSE 77; RESP 16; TEMP 36.3; O2SAT 96
--- NOTE | 2019-11-30 12:12 | DI.RAD_ITS ---
EXAM: XR KNEE LT 4V AP,LAT,ALVIN,PAT INDICATION: pain. COMPARISON: XR KNEE LT 1V from 11/28/2019 TECHNIQUE: 2D digital imaging was performed. FINDINGS: There are again seen postsurgical changes of a left total knee replacement. No evidence of hardware failure is seen. The bones are intact. There is a joint effusion. The soft tissues are unremarkable . IMPRESSION: 1. No acute abnormality. 2. Joint effusion.
--- NOTE | 2019-11-30 13:30 | ED.GENADUL_ITS ---
Discharge Plan Disposition Patient Disposition: HOME Condition: Good Discharge Details Chief Complaint: Orthopedic Clinical Impression: Acute knee pain Primary Care Provider: Adrienne Hu ED Provider: Ayse Miller Home Meds and New Rx's Prescriptions: No Action ropinirole 0.25 mg tablet 0.25 mg PO QHS RF: 0 ascorbate calcium (vitamin C) 500 mg tablet 600 mg PO .COMPLEX RF: 0 cholecalciferol (vitamin D3) 1,000 unit capsule 1,000 unit PO .COMPLEX RF: 0 glucosamine-chondroitin 500-400 mg capsule 2 cap PO HS RF: 0 potassium 99 mg tablet 99 mg PO DAILY RF: 0 aspirin 81 mg tablet,delayed release (DR/EC) 81 mg PO BID Qty: 60 RF: 0 acetaminophen 500 mg tablet 1,000 mg PO Q8H PRN (Reason: pain) Qty: 90 RF: 3 omeprazole [Prilosec] 20 MG capsule,delayed release(DR/EC) 20 mg PO HS RF: 0 escitalopram oxalate [Lexapro] 10 MG tablet 10 mg PO HS RF: 0 oxycodone 5 mg tablet 5 mg PO Q4H MDD 30mg Qty: 18 RF: 0 Discharge Instructions Instructions: Knee Pain (ED) Additional Instructions: Rest. Activities as tolerated. Elevate injury to prevent swelling. Ice to the area of discomfort for 15 min. 3-5 times daily. Motrin every 8 hours with food or Tylenol every 6 hours for soreness if needed over the counter for comfort. Followup with orthopedic doctor as discussed if not improving in 2-3 days Continue PT as scheduled. Return for any worsening or concerns sooner if needed. Referrals: Sorin Heredia MD [ [facility] STAFF PHYSICIAN] - Discharge Data Discharge Date/Time-TO BE ENTERED AT DEPARTURE: 11/30/19 13:[address] Heredia also evaluated the patient in the emergency room. Feels comfortable with patient being discharged home. Recommend rest, ice and if not improving will follow-up in office. HPI General Date/Time Provider Initiated Documentation: 11/30/19 11:42 . HPI Narrative: This is a pleasant 59-year-old woman presenting to the emergency room for concern of left knee pain. Patient reports she is status post total knee replacement with Dr. Heredia on 15 November. Patient reports a 730 this morning she was getting out of her car lifted her leg to swing her leg out of the car and while she was swinging her surgical leg she felt a pop in the p osterior lateral aspect of her knee. Patient reports immediate pain experienced associated with pop. Patient reports she sat at the side of the car for a few moments then attempted to ambulate with persistent pain. She did call her orthopedic surgeon's office who recommended emergency room evaluation. Patient denies any associated numbness, tingling or weakness. Persistent limping and painful gait. Patient denies any other sites of pain or concerns. Patient concerned with the pop she experienced. Patient denies any significant lower leg swelling. Patient denies any other concerns or complaints at this time. On exam patient does have notable posterior left knee pain as well as mild pain overlying the LCL. Patient is able to flex extend with pain. Surgical incision appears well approximated. No secondary signs of infection. No calf pain with palpation or distal pain noted on exam. Pain seems focal to the posterior lateral knee. No significant quadriceps pain. Straight leg raise intact. X-ray ordered of affected knee. Dr. Heredia arrived in the emergency room aware of his patient's x-ray evaluated the patient recommends discharge home and follow-up in the office. Feels likely patient will improve in the next few days. FINDINGS: There are again seen postsurgical changes of a left total knee replacement. No evidence of hardware failure is seen. The bones are intact. There is a joint effusion. The soft tissues are unremarkable. IMPRESSION: 1. No acute abnormality. 2. Joint effusion. Rice encouraged, continued physical therapy encouraged, use of assistive devices encouraged, offered Cristian wrap and declines. Encouraged follow-up with orthopedics. Patient agrees with plan of care. The patient was stable and requested discharge. Prior to discharge, my usual and customary return precautions were reviewed with the patient - this included follow-up instructions and reasons to return to the Emergency Department if conditions worsens, does not improve as expected, or other new concerns arise. Related Data Home Medications Medication Instructions Recorded Confirmed escitalopram oxalate [Lexapro] 10 mg PO HS 07/16/14 11/30/19 omeprazole [Prilosec] 20 mg PO HS 07/16/14 11/30/19 ascorbate calcium (vitamin C) 500 600 mg PO .COMPLEX tab 07/29/19 11/30/19 mg tablet cholecalciferol (vitamin D3) 25 1,000 unit PO .COMPLEX 07/29/19 11/30/19 mcg (1,000 unit) capsule glucosamine-chondroitin 500 mg-400 2 cap PO HS cap 07/29/19 11/30/19 mg capsule potassium 99 mg tablet 99 mg PO DAILY tab 07/29/19 11/30/19 ropinirole 0.25 mg tablet 0.25 mg PO QHS 07/29/19 11/30/19 acetaminophen 500 mg tablet 1,000 mg PO Q8H PRN #90 tab 11/16/19 11/30/19 aspirin 81 mg tablet,delayed 81 mg PO BID #60 tab 11/16/19 11/30/19 release oxycodone 5 mg PO Q4H #18 tab MDD 30mg 11/16/19 11/30/19 Previous Rx's Medication Instructions Recorded acetaminophen 500 mg tablet 1,000 mg PO Q8H PRN #90 tab 11/16/19 aspirin 81 mg tablet,delayed 81 mg PO BID #60 tab 11/16/19 release oxycodone 5 mg PO Q4H #18 tab MDD 30mg 11/16/19 Allergies Allergy/AdvReac Type Severity Reaction Status Date / Time aspirin Allergy Intermediate Nausea Unverified 11/30/19 11:58 General Stated Complaint: Orthopedic ROGELIO: 4 PFSH Medical History (Updated 11/28/19 @ 12:11 by RAVINDRA Mancia) Anxiety (Chronic) GERD (gastroesophageal reflux disease) (Chronic) Migraine (Chronic) Restless leg syndrome (Acute) Sleep apnea (Acute) uses CPAP Surgical History (Updated 11/28/19 @ 12:12 by RAVINDRA Mancia) Combative reaction (Acute) History of waking up from anesthesia with the potential to be combative, pt states I've woken up swinging before. History of foot surgery (Acute) left surgery with pins History of knee surgery (Acute) Done at [facility] History of surgery on arm (Acute) Left arm surgery History of tonsillectomy and adenoidectomy (Acute) History of total left knee replacement (TKR) (Acute 11/15/19) Dr. Heredia History of tubal ligation (Chronic) Hx of appendectomy (Chronic) Hx of cholecystectomy (Chronic) Social History Smoking/Tobacco Use Status: Former Tobacco Use Alcohol Intake: current Alcohol Intake frequency: 0-2 drinks per day Drug use: Never Substance use type: does not use Current gender identity: female Do you feel safe at home: Yes Do you feel safe in your relationship?: Yes Course Vital Signs Vital signs: Vital Signs Temperature 36.3 C L 11/30/19 11:43 Pulse 77 11/30/19 11:43 Respiratory Rate 16 11/30/19 11:43 Blood Pressure 122/64 11/30/19 11:43 Pulse Oximetry 96 11/30/19 11:43 Temperature 36.3 C L 11/30/19 11:43 Temperature Source Skin 11/30/19 11:43 Pulse 77 11/30/19 11:43 Respiratory Rate 16 11/30/19 11:43 Respiratory Effort Non-Labored 11/30/19 11:43 Blood Pressure 122/64 11/30/19 11:43 Blood Pressure Position Sitting 11/30/19 11:43 Pulse Oximetry 96 11/30/19 11:43 Oxygen Delivery Method Room Air 11/30/19 11:43 Oxygen Flow Rate 0 11/30/19 11:43 Pain Level 7 11/30/19 12:08
== END 2019-11-30 13:41 | disposition home or self-care (01) ==
PROVIDERS: Emergency Provider Physician Assistant; PCP Physician Assistant Medical
DX: M25.562 Pain in left knee (principal); Z96.652 Presence of left artificial knee joint
CPT/HCPCS: 99283; 73564; 99281

== ENCOUNTER 2020-11-22 09:19 | Outpatient (CLI) | payer BC, SELFPAY ==
--- NOTE | 2020-11-22 09:00 | DI.RAD_ITS ---
EXAM: XR KNEE LT 2V AP,LAT CLINICAL HISTORY: ANNUAL F/U L TKA. TECHNIQUE: 2D digital imaging was performed. COMPARISON: CR XR KNEE LT 4V AP,LAT,ALVIN,PAT from 11/30/2019 FINDINGS: Position and alignment of the components of the prosthesis remain satisfactory. No fracture or loose yolande. No radiographic evidence of osteomyelitis. IMPRESSION: DATA REPOSITORY: RADIATION DOSE DELIVERED:
== END 2020-11-22 09:39 ==
PROVIDERS: PCP Physician Assistant Medical; Referring Provider Physician Assistant Medical; Visit Provider Student in an Organized Health Care Education/Training Program
DX: Z96.652 Presence of left artificial knee joint (principal)
CPT/HCPCS: 73560